=== PATIENT | male | born 1955 | race Caucasian/White ===

== ENCOUNTER 2022-08-17 13:33 | Emergency (ER) | payer MEDICARE, SELFPAY ==
[2022-08-17] VITALS (8 sets, daily range): BP systolic 128–139; BP diastolic 73–79; PULSE 65–74; TEMP 36.2; O2SAT 95–99; BMI 27.8
--- NOTE | 2022-08-17 13:54 | CRLHL7_ITS ---
For Patients: As a result of the Cures Act, medical imaging exams and procedure reports are released immediately into your electronic medical record. You may view this report before your referring provider. If you have questions, please contact your health care provider. INDICATION: Fall and injury. TECHNIQUE: Chest 2 views. COMPARISON: Chest radiograph 02/27/2020. FINDINGS: No focal consolidation, pleural effusion, or pneumothorax. Normal heart size and pulmonary vascularity. Sternotomy with mediastinal clips. Left chest AICD with leads over the right atrium, right ventricle, and coronary sinus. Degenerative changes of the spine. No displaced rib fracture identified. IMPRESSION: No acute cardiopulmonary findings. Dictated by Lyric Solo MD @ 08/17/2022 3:21:51 PM (Electronically Signed)
--- NOTE | 2022-08-17 13:55 | CRLHL7_ITS ---
For Patients: As a result of the Century Cures Act, medical imaging exams and procedure reports are released immediately into your electronic medical record. You may view this report before your referring provider. If you have questions, please contact your health care provider. Indication: fall and head injury Technique: Noncontrast axial CT of the cervical spine with coronal and sagittal reformats are provided. Sagittal images arrived at 4:25 p.m.. Comparison: No prior studies available for comparison at this institution. Findings: No fractures. No spondylolysis or spondylolisthesis. No aggressive osseous lesions. Prominent anterior osteophytes at C4-5, C5-6 and C6-7. No prevertebral or paraspinal edema. The craniocervical junction is unremarkable. Atherosclerotic calcifications of the vertebral arteries. C1-2: No spinal canal stenosis C2-3: Moderate right and mild left facet arthrosis. Minimal uncovertebral spurring. No significant spinal canal stenosis or neural foramen narrowing. C3-4: Advanced left facet arthrosis and bilateral uncovertebral joint hypertrophy. Severe left and moderate right neural foramen narrowing. Shallow disc osteophyte complex. No significant spinal canal stenosis. C4-5: Disc osteophyte complex results in mild spinal canal narrowing. Uncovertebral spurring and facet arthrosis. Moderate left and no right neural foramen narrowing. C5-6: Moderate interspace narrowing. Disc osteophyte complex results in mild spinal canal narrowing. Uncovertebral spurring and right facet arthrosis. Moderate right and mild left neural foramen narrowing. C6-7: Moderate interspace narrowing. Disc osteophyte complex results in mild spinal canal narrowing. Uncovertebral joint hypertrophy. No neural foramina narrowing. C7-T1: No significant spinal canal stenosis or neural foramen narrowing.. Advanced right facet arthrosis. Impression : 1. No acute osseous abnormality. 2. Multilevel cervical spondylosis. Please note that all CT scans at this facility use dose modulation, iterative reconstruction, and/or weight-based dosing when appropriate to reduce radiation dose to as low as reasonably achievable. Dictated by Manuel Duncan MD @ 08/17/2022 4:33:55 PM (Electronically Signed)
--- NOTE | 2022-08-17 13:55 | CRLHL7_ITS ---
For Patients: As a result of the Century Cures Act, medical imaging exams and procedure reports are released immediately into your electronic medical record. You may view this report before your referring provider. If you have questions, please contact your health care provider. Indication: Fall with head injury. Technique: Performed without IV contrast. Comparison: None available. Findings: Infarct in the right frontal parietal convexity region, presumably chronic. No mass lesion or ventricular obstruction. No hemorrhage is identified. No acute brain edema or ischemia is localized on this exam. The calvarium and skull base are unremarkable, with normal aeration of the visualized petrous temporal bones and paranasal sinuses on both sides. Impression: 1. 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 2. No acute pathology is identified. Please note that all CT scans at this facility use dose modulation, iterative reconstruction, and/or weight-based dosing when appropriate to reduce radiation dose to as low as reasonably achievable. Dictated by Pankaj Rod MD @ 08/17/2022 3:04:29 PM (Electronically Signed)
--- NOTE | 2022-08-17 14:35 | ED.FALL ---
HPI - Fall General Date Seen: 08/17/22 Chief Complaint: Fall/Minor Trauma Stated Complaint: Fall Time Seen by Provider: 08/17/22 13:34 Source: patient and family Mode of arrival: ambulatory Limitations: no limitations History of Present Illness HPI Narrative: Patient is a nice 66-year-old gentleman who presents here after a fall yesterday slipped and is graduating his left rastafari on the ground, he was wearing shoes, and says he slipped on the carpeted floors. He was not knocked out, has lump on the left side of his head, and is on Eliquis. Slight the neck discomfort also, and more worried about the fact he just had a pacemaker placed on the left side of his chest. 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 He is worried that he may have alfredo something with the pacemaker. He otherwise feels fine no nausea vomiting no diplopia double vision no numbness tingling weakness. Fall occurred yesterday greater than 24 hours ago. He called the clinic today and they recommended he come into the emergency room. MD complaint: fall Fall from: standing Fall witnessed: no Place fall occurred: home Loss of consciousness: No Prolonged down time: no Context: tripped/slipped Location of injury: head, neck and chest Related Data Home Medications Medication Instructions Recorded Confirmed apixaban 5 mg tablet (Eliquis) mg 08/17/22 blood sugar diagnostic (Accu-Chek 08/17/22 08/17/22 Petty Plus test strips) glipizide 10 mg tablet, extended mg PO 08/17/22 release 24 hr metformin 500 mg tablet,extended mg PO 08/17/22 release 24 hr metoprolol succinate 50 mg mg PO 08/17/22 tablet,extended release 24 hr sildenafil 100 mg tablet mg 08/17/22 valsartan 40 mg tablet mg 08/17/22 zolpidem 10 mg tablet mg 08/17/22 Allergies Allergy/AdvReac Type Severity Reaction Status Date / Time acetaminophen [From [place]] Allergy Unknown Verified 08/17/22 13:43 hydrocodone [From [place]] Allergy Unknown Verified 08/17/22 13:43 Review of Systems Status of ROS: Reports: 10 or more systems reviewed and unremarkable except as noted in History and below PFSH PFSH Social History Smoking Status: Never smoker How often do you have a drink containing alcohol: monthly or less How often do you have six or more drinks on one occasion: Never AUDIT-C Alcohol total score: 1 Non-prescribed substance use: denies use Exam Narrative: Exam Narrative: Patient is seen in room 1, Patient is speaking normally, no problem with slurring words, oriented x3. Head eyes ears nose and throat exam show equal pupils, no scleral icterus, extraocular muscles are normal, no facial droop, speech is normal, trachea normal and midline. Thyroid normal midline palpable not enlarged. Chest shows symmetrical rise bilaterally, normal auscultation with no wheezes, no increased work of breathing, no overt bruising or lesions seen, no tenderness is noted on auscultation. Heart sounds normal with no S3-S4 no murmurs clicks or gallops. Abdomen shows no obvious masses or hepatosplenomegaly, no organomegaly, bowel sounds are normal in all quadrants. No tenderness is noted also in all quadrants. Upper and lower extremities show normal power, normal range of motion, pulses are normal, sensations normal, fine motor movements are normal, pelvis is stable to rocking. Cervical spine shows normal range of motion, and palpably not tender. Thoracic spine shows normal range of motion, and palpably not tender, lumbar spine shows no tenderness to palpation percussion and is otherwise normal range of motion. Skin shows no rashes, petechiae or eccymosis. Const: Vital Signs, click to edit/add: Vital Signs - 24 hr 08/17/22 13:39 08/17/22 15:09 08/17/22 15:10 Temperature 97.1 F L Pulse Rate 65 67 Pulse Rate [Pulse Oximeter] 67 Blood Pressure 139/76 Blood Pressure [Ri ght Upper Arm] 138/79 Pulse Oximetry 99 96 96 Oxygen Delivery Me thod Room Air 08/17/22 15:11 08/17/22 15:30 08/17/22 15:32 Temperature Pulse Rate 73 69 74 Pulse Rate [Pulse Oximeter] Blood Pressure 128/79 Blood Pressure [Ri ght Upper Arm] Pulse Oximetry 95 98 98 Oxygen Delivery Me thod 08/17/22 16:00 08/17/22 16:01 Temperature Pulse Rate 67 67 Pulse Rate [Pulse Oximeter] Blood Pressure 135/73 Blood Pressure [Ri ght Upper Arm] Pulse Oximetry 95 97 Oxygen Delivery Me thod Documenting provider has reviewed patient's vital signs: yes Course Vital Signs Vital signs: Initial Vital Signs Temperature 97.1 F L 08/17/22 13:39 Temperature Source Temporal Artery Scan 08/17/22 13:39 Pulse Rate 67 08/17/22 13:39 Blood Pressure 138/79 08/17/22 13:39 Blood Pressure Mean 98 08/17/22 13:39 Blood Pressure Position Sitting 08/17/22 13:39 Pulse Oximetry 99 08/17/22 13:39 Oxygen Delivery Method 08/17/22 13:39 Vital Signs Temperature 97.1 F L 08/17/22 13:39 Pulse Rate 67 08/17/22 13:39 Blood Pressure 138/79 08/17/22 13:39 Pulse Oximetry 99 08/17/22 13:39 Oxygen Delivery Method 08/17/22 13:39 Temperature 97.1 F L 08/17/22 13:39 Pulse Rate 67 08/17/22 16:01 Blood Pressure 135/73 08/17/22 16:01 Pulse Oximetry 97 08/17/22 16:01 Oxygen Delivery Method 08/17/22 13:39 MDM - Fall MDM Narrative Medical decision making narrative: Life-threatening differential diagnosis is considered include: Subarachnoid hemorrhage, subdural hemorrhage, epidural hemorrhage. Other differential diagnosis considered include concussion, closed head injury, or neck fracture. Medical Records Attestation: I reviewed the patient's medical records. Lab Data Attestation: I reviewed the patient's lab results. Imaging Data CT scan - head: Radiologist's impression: Patient: [facility] Facility:?[facility] Patient ID:?[id number] Site Patient ID:?[id number]. Site :?1955 Study:?CT Head W/O-08/17/2022 2:33:58 PM Ordering Physician:Michael Shelton Final Report: Indication: Fall with head injury. Technique: Performed without IV contrast. Comparison: None available. Findings: Infarct in the right frontal parietal convexity region, presumably chronic. No mass lesion or ventricular obstruction. No hemorrhage is identified. No acute brain edema or ischemia is localized on this exam. The calvarium and skull base are unremarkable, with normal aeration of the visualized petrous temporal bones and paranasal sinuses on both sides. Impression: 1. 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 2. No acute pathology is identified. Please note that all CT scans at this facility use dose modulation, iterative reconstruction, and/or weight-based dosing when appropriate to reduce radiation dose to as low as reasonably achievable. Dictated by Pankaj Rod MD @ 08/17/2022 3:04:29 PM (Electronic Signature) Patient: [facility] Facility:?[facility] Patient ID:?[id number] Site Patient ID:?[id number]. Site :?1955 Study:?XRay Chest PA & LAT-08/17/2022 2:16:46 PM Ordering Physician:Michael Shelton Final Report: INDICATION: Fall and injury. TECHNIQUE: Chest 2 views. COMPARISON: Chest radiograph 02/27/2020. FINDINGS: No focal consolidation, pleural effusion, or pneumothorax. Normal heart size and pulmonary vascularity. Sternotomy with mediastinal clips. Left chest AICD with leads over the right atrium, right ventricle, and coronary sinus. Degenerative changes of the spine. No displaced rib fracture identified. IMPRESSION: No acute cardiopulmonary findings. Dictated by Lyric Solo MD @ 08/17/2022 3:21:51 PM (Electronic Signature) atient: [facility] Facility:?[facility] Patient ID:?[id number] Site Patient ID:?[id number]. Site :?1955 Study:?CT Spine Cervical -08/17/2022 2:34:19 PM Ordering Physician:Michael Shelton Final Report: Indication: fall and head injury Technique: Noncontrast axial CT of the cervical spine with coronal and sagittal reformats are provided. Sagittal images arrived at 4:25 p.m.. Comparison: No prior studies available for comparison at this institution. Findings: No fractures. No spondylolysis or spondylolisthesis. No aggressive osseous lesions. Prominent anterior osteophytes at C4-5, C5-6 and C6-7. No prevertebral or paraspinal edema. The craniocervical junction is unremarkable. Atherosclerotic calcifications of the vertebral arteries. C1-2: No spinal canal stenosis C2-3: Moderate right and mild left facet arthrosis. Minimal uncovertebral spurring. No significant spinal canal stenosis or neural foramen narrowing. C3-4: Advanced left facet arthrosis and bilateral uncovertebral joint hypertrophy. Severe left and moderate right neural foramen narrowing. Shallow disc osteophyte complex. No significant spinal canal stenosis. C4-5: Disc osteophyte complex results in mild spinal canal narrowing. Uncovertebral spurring and facet arthrosis. Moderate left and no right neural foramen narrowing. C5-6: Moderate interspace narrowing. Disc osteophyte complex results in mild spinal canal narrowing. Uncovertebral spurring and right facet arthrosis. Moderate right and mild left neural foramen narrowing. C6-7: Moderate interspace narrowing. Disc osteophyte complex results in mild spinal canal narrowing. Uncovertebral joint hypertrophy. No neural foramina narrowing. C7-T1: No significant spinal canal stenosis or neural foramen narrowing.. Advanced right facet arthrosis. Impression : 1. No acute osseous abnormality. 2. Multilevel cervical spondylosis. Please note that all CT scans at this facility use dose modulation, iterative reconstruction, and/or weight-based dosing when appropriate to reduce radiation dose to as low as reasonably achievable. Dictated by Manuel Duncan MD @ 08/17/2022 4:33:55 PM (Electronic Signature) ECG Data Attestation: I personally reviewed and interpreted this ECG as follows: ECG interpretation date: 08/17/22 Interpretation: EKG shows normal sinus rhythm with a ventricular rate of 67, wide QRS, may be ventricular paced also. Normal QRS QT and TN interval. Discharge Plan Discharge Clinical Impression: Chronic anticoagulation, Head injury, Neck pain, Chest pain Patient Disposition: Home w/ Parent or Adult Condition: Stable Instructions: Head Injury (ED), Noncardiac Chest Pain (ED), Safe Use of Anticoagulants (ED), Neck Pain (ED) Additional Instructions: Home rest use of Tylenol if you have any pain, it looks like the pacer is all intact, along with the wires. Head CT is negative for any acute bleeds, and your neck just looks like arthritis in the neck region. But no acute fractures. Prescriptions: No Action metoprolol succinate 50 mg tablet extended release 24 hr PO Label Comments: TAKE 1 TABLET BY MOUTH ONE TIME DAILY glipizide 10 mg tablet extended release 24hr PO Label Comments: TAKE 1 TABLET BY MOUTH ONE TIME DAILY (DME) Accu-Chek Petty Plus test strp Strip MISCELLANEOUS Label Comments: Test three times a day, two days a week sildenafil 100 mg tablet Label Comments: TAKE ONE TABLET BY MOUTH DAILY DIRECTED zolpidem 10 mg tablet Label Comments: TAKE ONE TABLET BY MOUTH AT BEDTIME NEEDED metformin 500 mg tablet extended release 24 hr PO Label Comments: TAKE 4 TABLETS BY MOUTH EVERY MORNING WITH BREAKFAST valsartan 40 mg tablet Label Comments: TAKE 1/2 TABLET BY MOUTH TWICE DAILY Eliquis 5 mg tablet Label Comments: TAKE 1 TABLET BY MOUTH TWICE DAILY Follow Up/Referrals: Provider,Not a Local [Primary Care Provider] - Stand Alone Forms: MyHealth Info Instructions
== END 2022-08-17 16:45 | disposition home or self-care (01) ==
PROVIDERS: Emergency Provider Family Medicine
DX: S09.90XA Unspecified injury of head, initial encounter (principal); M54.2 Cervicalgia; R07.9 Chest pain, unspecified; Z79.01 Long term (current) use of anticoagulants
CPT/HCPCS: 70450; 71046; 72125; 93005; 99284; 99285